=== PATIENT | female | born 1955 | race Caucasian/White ===

== ENCOUNTER 2020-10-23 19:22 | Emergency (ER) | payer BC, MEDICAID ==
[~2020-10-23] VITALS: Ht 162.6 cm; Wt 48.5 kg
--- NOTE | 2020-10-23 19:46 | NUR ---
ED Nurse Note: pt presents to ED c/o R wrist and forearm swelling x 6 weeks. she states that she went to an urgent care today and they recommended she come in for an US and evaluation of blood clot. pt reports that she quit smoking 15 years ago, and that she used to take oral contraceptives and have an IUD. pt rates the pain a 2/10 and decreased ROM of R wrist
[2020-10-23 19:48] VITALS: BP 132/79
--- NOTE | 2020-10-23 19:49 | NUR ---
ED Nurse Note: pt also reports bilat tinnitis for unk amount of time
--- NOTE | 2020-10-23 21:42 | Diagnostic Imaging Report ---
EXAM: US Duplex Right Upper Extremity Veins CLINICAL HISTORY: SYNCOPE TECHNIQUE: Real-time duplex ultrasound scan of the right upper extremity veins integrating B-mode two-dimensional vascular structure, Doppler spectral analysis, color flow Doppler imaging and compression. COMPARISON: No relevant prior studies available. FINDINGS: Deep veins: Unremarkable. No DVT in the internal jugular, subclavian, axillary, or brachial veins. The veins demonstrate normal color flow, are normally compressible, with normal phasic flow and/or augmentation response. Superficial veins: Unremarkable. No thrombus in the visualized basilic and cephalic veins. Soft tissues: No acute findings. IMPRESSION: Normal right upper extremity duplex venous ultrasound.
--- NOTE | 2020-10-23 21:43 | NUR ---
ER DISCHARGE NOTE: Patient is cleared to be discharged per ERMD, pt is aox4, on room air, with stable vital signs. pt was given dc and prescription instructions, pt was able to verbalize understanding, pt id band removed without complications. pt is able to ambulate with steady gait. pt took all belongings.
[2020-10-23 21:44] VITALS: BP 132/79
--- NOTE | 2020-10-24 14:30 | Emergency Room Report ---
History of Present Illness General Chief Complaint: Edema Source: Patient Present Illness HPI 64-year-old female presents to ED for evaluation. Notes swelling to her right upper extremity. Had the swelling for about 6 weeks give or take. Pain is dull, 5 out of 10, nonradiating. Denies fevers or chills. Denies any fall or injury. Went to urgent care and they were concerned about a blood clot. Denies chest pain or shortness of breath. No other aggravating relieving factors. Denies any other associated symptoms Allergies: Uncoded Allergies: PCN (Allergy, Unknown, 10/23/20) COVID-19 Screening Contact w/high risk pt: No Experienced COVID-19 symptoms?: No COVID-19 Testing performed NIGHT CUSTODIAN: No Patient History Past Medical History: none Past Surgical History: none Pertinent Family History: none Social History: Denies: smoking, alcohol use, drug use Now: No Immunizations: UTD Reviewed Nursing Documentation: PMH: Agreed; PSxH: Agreed Nursing Documentation-PMH Past Medical History: No Stated History Review of Systems All Other Systems: negative except mentioned in HPI Physical Exam Vital Signs Date Time Temp Pulse Resp B/P (MAP) Pulse Ox O2 Delivery O2 Flow Rate FiO2 10/23/20 19:38 97.5 78 18 132/79 (96) 95 Room Air Sp02 EP Interpretation: reviewed, normal General Appearance: no apparent distress, alert, GCS 15, non-toxic Head: normocephalic, atraumatic Eyes: bilateral eye normal inspection, bilateral eye PERRL ENT: hearing grossly normal, normal pharynx, no angioedema, normal voice Neck: full range of motion, supple/symm/no masses Respiratory: chest non-tender, lungs clear, normal breath sounds, speaking full sentences Cardiovascular #1: regular rate, rhythm, no edema Cardiovascular #2: 2+ carotid (R), 2+ carotid (L), 2+ radial (R), 2+ radial (L), 2+ dorsalis pedis (R), 2+ dorsalis pedis (L) Gastrointestinal: normal bowel sounds, non tender, soft, non-distended, no guarding, no rebound Rectal: deferred Genitourinary: normal inspection, no CVA tenderness Musculoskeletal: back normal, normal range of motion, gait/station normal, non- tender, swelling - RUE Neurologic: alert, motor strength/tone normal, oriented x3, sensory intact, responsive, speech normal Psychiatric: judgement/insight normal, memory normal, mood/affect normal, no suicidal/homicidal ideation Reflexes: 3+ bicep (R), 3+ bicep (L), 3+ tricep (R), 3+ tricep (L), 3+ knee (R), 3+ knee (L) Lymphatic: no adenopathy Medical Decision Making Diagnostic Impression: Primary Impression: Edema Qualified Codes: R60.9 - Edema, unspecified ER Course Hospital Course 64-year-old female presents with right upper extremity swelling Differential diagnoses include: DVT, cellulitis, contusion, abscess Clinical course Patient placed on stretcher after initial history and physical I ordered DVT ultrasound. Doppler ultrasound shows no evidence of DVT I discussed findings with patient. No evidence of infection. Recommend close follow-up with orthopedics. States she has a follow-up with rheumatology as outpatient. I. I feel this is a highly complex case requiring extensive working including EKG/Rhythm strip, Xray/CT/US, Blood/urine lab work, repeat exams while in ED, and administration of strong opiates/narcotics for pain control, admission to hospital or close patient follow up. Diagnosis - edema Stable and discharged to home. Followup with PMD. Return to ED if symptoms recur or worsen CT/MRI/US Diagnostic Results CT/MRI/US Diagnostic Results : Imaging Test Ordered: venous duplex RUE Impression Procedure: Venous Duplex Upper EXT UNI EXAM: US Duplex Right Upper Extremity Veins CLINICAL HISTORY: SYNCOPE TECHNIQUE: Real-time duplex ultrasound scan of the right upper extremity veins integrating B-mode two-dimensional vascular structure, Doppler spectral analysis, color flow Doppler imaging and compression. COMPARISON: No relevant prior studies available. FINDINGS: Deep veins: Unremarkable. No DVT in the internal jugular, subclavian, axillary, or brachial veins. The veins demonstrate normal color flow, are normally compressible, with normal phasic flow and/or augmentation response. Superficial veins: Unremarkable. No thrombus in the visualized basilic and cephalic veins. Soft tissues: No acute findings. IMPRESSION: Normal right upper extremity duplex venous ultrasound. Last Vital Signs Date Time Temp Pulse Resp B/P (MAP) Pulse Ox O2 Delivery O2 Flow Rate FiO2 10/23/20 21:44 97.5 78 18 132/79 95 Room Air Status: improved Disposition: HOME, SELF-CARE Condition: Stable Referrals: [facility],REFERRING (PCP) Patient Instructions: Edema, [id number] Darian Gimenez MD Oct 24, 2020 14:30
== END 2020-10-23 21:44 | disposition home or self-care (01) ==
LOC: EMR 20:05
DX: R60.9 Edema, unspecified (principal); Z88.0 Allergy status to penicillin
CPT/HCPCS: 93971; 99284